=== PATIENT | male | born 1990 | race Caucasian/White ===

== ENCOUNTER 2020-01-11 13:23 | Emergency (ER) | payer OTHER ==
[2020-01-11 14:42] VITALS: BP 122/71
[2020-01-11 14:55] LABS: Influenza B Molecular POSITIVE (Negative)
--- NOTE | 2020-01-11 15:03 | UC ---
FLU HPI - HPI Summary HPI Summary: Pt presents with c/o sudden onset of fever, chills, cough, and ST X 1 day. - History of Current Complaint Chief Complaint: UCGeneralIllness Stated Complaint: COUGH,CHILLS,SORE THROAT Time Seen by Provider: 01/11/20 14:39 Hx Obtained From: Patient Onset/Duration: Sudden Onset, Still Present Severity Currently: Moderate Severity Initially: Moderate Pain Intensity: 4 Associated Signs & Symptoms: Positive: Fever, Myalgia, Sore Throat, Nasal Congestion Related Hx: Possible Flu/Infectious Exposure - Risk Factors Influenza Risk Factors: Negative - Allergy/Home Medications Allergies/Adverse Reactions: Allergies Allergy/AdvReac Type Severity Reaction Status Date / Time amoxicillin [From Augmentin] Allergy Vomiting Verified 01/11/20 14:43 clavulanic acid Allergy Vomiting Verified 01/11/20 14:43 [From Augmentin] Home Medications: Home Medications Cetirizine HCl [Zyrtec] 10 mg PO DAILY 03/25/13 [History Confirmed 01/11/20] Lacosamide [Vimpat] 200 mg PO BID 03/25/13 [History Confirmed 01/11/20] levETIRAcetam [Keppra-] 2,000 mg PO BID 03/25/13 [History Confirmed 01/11/20] Oseltamivir CAP* [Tamiflu CAP*] 75 mg PO Q12H #10 cap 01/11/20 [Rx] PMH/Surg Hx/FS Hx/Imm Hx - Additional Past Medical History Additional PMH: Pt has cognitive disability Previously Healthy: Yes - Surgical History Surgical History: Yes Surgery Procedure, Year, and Place: pacemaker insertion 2010 - Family History Known Family History: Positive: Cardiac Disease - Social History Occupation: Employed Full-time Lives: With Family Alcohol Use: None Substance Use Type: None Smoking Status (MU): Never Smoked Tobacco Have You Smoked in the Last Year: No - Immunization History Vaccination Up to Date: Yes Review of Systems All Other Systems Reviewed And Are Negative: Yes Constitutional: Positive: Fever, Chills, Fatigue Skin: Positive: Negative Eyes: Positive: Negative ENT: Positive: Sore Throat, Sinus Congestion Respiratory: Positive: Cough Cardiovascular: Positive: Negative Gastrointestinal: Positive: Negative Motor: Positive: Negative Neurovascular: Positive: Negative Musculoskeletal: Positive: Myalgia Neurological/Mental Status: Positive: Headache Psychological: Positive: Negative Is Patient Immunocompromised?: No Physical Exam Triage Information Reviewed: Yes Appearance: Ill-Appearing Vital Signs: Initial Vital Signs Temp 98.1 F 01/11/20 14:37 Pulse 69 01/11/20 14:37 Resp 14 01/11/20 14:37 BP 122/71 01/11/20 14:37 Pulse Ox 98 01/11/20 14:37 Vital Signs Reviewed: Yes Eye Exam: Normal ENT: Positive: Nasal congestion, Other - cerumen bialteral ear canals. Dental Exam: Normal Neck exam: Normal Respiratory Exam: Normal Cardiovascular Exam: Normal Musculoskeletal Exam: Normal Neurological Exam: Normal Psychological Exam: Normal Skin Exam: Normal Flu Course/Dx - Differential Dx/Diagnosis Differential Diagnosis/HQI/PQRI: Bronchitis, Influenza, Upper Respiratory Infection Provider Diagnosis: Influenza B Discharge ED - Sign-Out/Discharge Documenting (check all that apply): Patient Departure All imaging exams completed and their final reports reviewed: No Studies - Discharge Plan Condition: Stable Disposition: HOME Prescriptions: Oseltamivir CAP* [Tamiflu CAP*] 75 mg PO Q12H #10 cap Patient Education Materials: Influenza (ED) Forms: *Work Release Referrals: Alexis Whittington MD [Primary Care Provider] - If Needed - Billing Disposition and Condition Condition: STABLE Disposition: Home
== END 2020-01-11 15:14 | disposition home or self-care (01) ==
LOC: UCCORT 13:23
DX: J10.1 Influenza due to other identified influenza virus with other respiratory manifestations (principal); Z88.0 Allergy status to penicillin; Z88.1 Allergy status to other antibiotic agents
CPT/HCPCS: 99202; G0463